=== PATIENT | male | born 1990 | race Caucasian/White ===

== ENCOUNTER 2016-07-28 09:01 | Emergency (ER) | payer SELFPAY ==
[~2016-07-28] VITALS: Ht 172.7 cm; Wt 63.5 kg
[~2016-07-28 09:01] MED LIST: ARIP5TAB9 PO; CITA20TA9 PO; DOCU250C91 PO
[2016-07-28] MEDS ORDERED: IBUPROFEN 600 MG TABLET PO ONE (11:15)
[2016-07-28 12:57] VITALS: BP 111/74
== END 2016-07-28 13:18 | disposition home or self-care (01) ==
LOC: EMS 09:01
DX: S62.340A Nondisplaced fracture of base of second metacarpal bone, right hand, initial encounter for closed fracture (principal); W22.8XXA Striking against or struck by other objects, initial encounter; Y93.89 Activity, other specified; Y92.89 Other specified places as the place of occurrence of the external cause; Y99.8 Other external cause status
CPT/HCPCS: 99284

== ENCOUNTER 2017-08-20 18:38 | Emergency (ER) | payer OTHER ==
[~2017-08-20] VITALS: Ht 172.7 cm; Wt 68.0 kg
[~2017-08-20 18:38] MED LIST changes: +ARIP5TAB8 PO; -ARIP5TAB9 PO
[2017-08-20] MEDS ORDERED: RAPID SEQUENCE KIT [RSI] 1 EACH KIT ONE (19:42)
[2017-08-20] MEDS ORDERED: SUCCINYLCHOLINE CHLORIDE 20 MG/ML 10 ML VIAL ONE (19:44)
[2017-08-20] MEDS ORDERED: KETOROLAC TROMETHAMINE 30 MG/ML VIAL IM ONE (20:30)
[2017-08-20 21:40] VITALS: BP 124/72
== END 2017-08-20 22:05 | disposition home or self-care (01) ==
LOC: EMS 18:41
DX: J40 Bronchitis, not specified as acute or chronic (principal); F17.210 Nicotine dependence, cigarettes, uncomplicated; Z79.899 Other long term (current) drug therapy
CPT/HCPCS: 71045; 96372; 99283; J1885; J0330

== ENCOUNTER 2017-09-24 20:50 | Emergency (ER) | payer OTHER ==
[~2017-09-24] VITALS: Ht 172.7 cm; Wt 63.6 kg
[2017-09-24] MEDS ORDERED: POVIDONE-IODINE 10% 15 ML SOLUTION UD TP ONE (22:15)
[2017-09-24] MEDS ORDERED: LIDOCAINE HCL 1% 10 ML VIAL INJ ONE (22:15)
[2017-09-24] MEDS ORDERED: BACITRACIN 0.9 GM PACKET OINTMENT TP ONE (22:30)
[2017-09-24 23:06] VITALS: BP 119/72
== END 2017-09-24 23:11 | disposition home or self-care (01) ==
LOC: EMS 20:51
DX: S05.41XA Penetrating wound of orbit with or without foreign body, right eye, initial encounter (principal); W01.10XA Fall on same level from slipping, tripping and stumbling with subsequent striking against unspecified object, initial encounter; Y93.89 Activity, other specified; Y92.89 Other specified places as the place of occurrence of the external cause; Y99.8 Other external cause status
CPT/HCPCS: 12011; 99283; J3490

== ENCOUNTER 2017-10-01 13:28 | Emergency (ER) | payer OTHER ==
[~2017-10-01] VITALS: Ht 172.7 cm; Wt 63.6 kg
[2017-10-01 15:50] VITALS: BP 118/87
== END 2017-10-01 16:14 | disposition home or self-care (01) ==
LOC: EMS 13:31
DX: Z48.02 Encounter for removal of sutures (principal); F17.210 Nicotine dependence, cigarettes, uncomplicated; F12.90 Cannabis use, unspecified, uncomplicated
CPT/HCPCS: 99281

== ENCOUNTER 2018-03-30 23:53 | Emergency (ER) | payer OTHER ==
[~2018-03-30] VITALS: Ht 172.7 cm; Wt 65.9 kg
[2018-03-31 01:03] VITALS: BP 130/68
== END 2018-03-31 01:38 | disposition home or self-care (01) ==
LOC: EMS 23:54
DX: S91.312A Laceration without foreign body, left foot, initial encounter (principal); F12.90 Cannabis use, unspecified, uncomplicated; F17.210 Nicotine dependence, cigarettes, uncomplicated; W25.XXXA Contact with sharp glass, initial encounter; Y93.89 Activity, other specified; Y92.89 Other specified places as the place of occurrence of the external cause; Y99.8 Other external cause status
CPT/HCPCS: 73630; 96372; 99284; J0690